=== PATIENT | male | born 1960 | race Caucasian/White ===

== ENCOUNTER 2018-12-29 16:20 | Emergency (ER) | payer OTHER ==
[~2018-12-29] VITALS: Ht 170.2 cm; Wt 79.4 kg
[2018-12-29 16:20] VITALS: BP_SYST 136
[2018-12-29] MEDS ORDERED: IPRATROPIUM/ALBUTEROL SULFATE 3 ML AMPUL.NEB (DUONEB) INH ONE (16:30)
[2018-12-29] MEDS ORDERED: MAGNESIUM SULFATE 50 ML IV ONE (16:30)
[2018-12-29] MEDS ORDERED: methylPREDNISolone SOD SUCC/PF 62.5 MG/ML VIAL IVP ONE (16:30)
[2018-12-29 16:54] LABS: BASOPHILS % (AUTO) 0.8 % (0.0-2.0); EOSINOPHILS % (AUTO) 0.6 % (0.0-4.0); HEMATOCRIT 44.8 % (36-54); HEMOGLOBIN 15.5 g/dL (14.0-18.0); LYMPHOCYTES # (AUTO) 1.4 K/uL (1.0-5.5); LYMPHOCYTES % (AUTO) 27.3 % (20.5-51.5); MEAN CORPUSCULAR HEMOGLOBIN 34 pg (27-31); MEAN CORPUSCULAR HGB CONC 35 % (32-36); MEAN CORPUSCULAR VOLUME 97 fL (79.0-98.0); MONOCYTES # (AUTO) 0.3 K/uL (0.0-1.0); MONOCYTES % (AUTO) 6.4 % (1.7-9.3); NEUTROPHILS # (AUTO) 3.3 K/uL (1.8-7.7); NEUTROPHILS % (AUTO) 64.9 % (40.0-70.0); PLATELET COUNT (AUTO) 178 K/uL (130-430); RED BLOOD CELL COUNT(AUTO) 4.62 MIL/uL (4.2-6.2); RED CELL DISTRIBUTION WIDTH 13.4 % (9.0-15.0); WHITE BLOOD COUNT (AUTO) 5.1 K/uL (4.8-10.8)
[2018-12-29 17:10] LABS: CALCIUM 8.4 mg/dL (8.4-11.0); CREATININE 1.01 mg/dL (0.55-1.30); POTASSIUM 3.6 mmol/L (3.5-5.1)
[2018-12-29 17:15] LABS: TOTAL BILIRUBIN 2.3 mg/dL (0.0-1.0)
[2018-12-29 18:00] VITALS: BP_SYST 136
== END 2018-12-29 18:05 | disposition home or self-care (01) ==
LOC: SED 16:20
DX: J45.909 Unspecified asthma, uncomplicated (principal); K21.9 Gastro-esophageal reflux disease without esophagitis
CPT/HCPCS: 36415; 71045; 80053; 85025; 87040; 94640; 96365; 96366; 96375; 99284; J2930; J3475; J7620

== ENCOUNTER 2019-07-19 16:52 | Emergency (ER) | payer OTHER ==
[~2019-07-19] VITALS: Ht 165.1 cm; Wt 83.5 kg
[2019-07-19 16:58] VITALS: BP_SYST 158
--- NOTE | 2019-07-19 16:58 | NUR ---
Patient to ER bed H1 to gown for evaluation. Side rails up. Report given to MAXIME Humphrey.
[2019-07-19] MEDS ORDERED: CLOPIDOGREL BISULFATE 75 MG TABLET PO ONE (17:00)
[2019-07-19] MEDS ORDERED: ASPIRIN 81 MG TAB.CHEW PO ONE (17:00)
[2019-07-19] MEDS ORDERED: NACL 0.9% 1,000 ML IV ONE (17:00)
--- NOTE | 2019-07-19 17:02 | NUR ---
ER at bedside examining patient.
[2019-07-19 17:12] LABS: BILIRUBIN,URINE NEGATIVE (NEGATIVE); BLOOD, URINE 1+ (NEGATIVE); CLARITY/URINE CLEAR (CLEAR); COLOR,URINE YELLOW (YELLOW); GLUCOSE,URINE NEGATIVE (NEGATIVE); KETONES,URINE NEGATIVE (NEGATIVE); LEUKOCYTE ESTERASE ,URINE NEGATIVE (NEGATIVE); NITRITE, URINE NEGATIVE (NEGATIVE); PH,URINE 6.5 (5.0-8.0); PROTEIN URINE NEGATIVE (NEGATIVE); UROBILINOGEN,URINE 0.2 (0.2-1.0)
[2019-07-19] MEDS ORDERED: DILTIAZEM HCL 25 MG/5 ML VIAL IVP ONE (17:15)
[2019-07-19 17:18] LABS: BACTERIA,URINE FEW /HPF (None Seen); MUCUS,URINE None Seen /LPF (None Seen); RBC,URINE 0-3 /HPF (0-3); WBC,URINE NONE SEEN /HPF (0-3)
--- NOTE | 2019-07-19 17:20 | NUR ---
Patient taken to radiology ambulatory and escorted by [place] technician anatomic pathology.
--- NOTE | 2019-07-19 17:25 | NUR ---
Pt presents to the ER for chest andmidsternal discomfort x today at 2pm. Pt states feeling discomfort after eating kiwi. Pt took asprin 81 mg at home. Pt states he also took his digitek, not sure of dose. He stopped taking his digitek medication 2 weeks prior due to feeling better and felt he had no need to take his medication. Addendum: 07/19/19 at 1806 by [email or web address] Pt stable, will continue to monitor.
--- NOTE | 2019-07-19 17:30 | NUR ---
Patient placed in ED 6 after going to radiology.
--- NOTE | 2019-07-19 17:30 | NUR ---
# 20 gauge angiocath placed to LAC. Use of asceptic technique. Opsite placed over site. Blood return noted. Flushed with 10 cc of normal saline. No evidence of infiltration noted. Patient tolerated well.
--- NOTE | 2019-07-19 17:44 | NUR ---
Cardizem not given as per Dr. Horton verbal order. BP 117/81 Pulse 77. Pt stable, Vitals WNL.
[2019-07-19 17:47] LABS: CALCIUM 9.2 mg/dL (8.4-11.0); CREATININE 0.89 mg/dL (0.55-1.30); POTASSIUM 4.4 mmol/L (3.5-5.1)
[2019-07-19 17:48] LABS: BASOPHILS % (AUTO) 0.7 % (0.0-2.0); HEMATOCRIT 49.2 % (36-54); HEMOGLOBIN 16.6 g/dL (14.0-18.0); LYMPHOCYTES # (AUTO) 1.8 K/uL (1.0-5.5); LYMPHOCYTES % (AUTO) 37.9 % (20.5-51.5); MEAN CORPUSCULAR HEMOGLOBIN 33 pg (27-31); MEAN CORPUSCULAR HGB CONC 34 % (32-36); MEAN CORPUSCULAR VOLUME 96 fL (79.0-98.0); MONOCYTES # (AUTO) 0.5 K/uL (0.0-1.0); MONOCYTES % (AUTO) 9.8 % (1.7-9.3); NEUTROPHILS # (AUTO) 2.4 K/uL (1.8-7.7); NEUTROPHILS % (AUTO) 50.6 % (40.0-70.0); RED CELL DISTRIBUTION WIDTH 13.8 % (9.0-15.0); WHITE BLOOD COUNT (AUTO) 4.7 K/uL (4.8-10.8)
[2019-07-19 17:51] LABS: PROTHROMBIN TIME 9.9 SECS (9.5-12.5)
[2019-07-19 17:53] LABS: ALBUMIN 3.9 g/dL (3.4-4.8)
[2019-07-19 17:54] LABS: PLATELET COUNT (AUTO) 300 K/uL (130-430)
--- NOTE | 2019-07-19 18:29 | NUR ---
Reassessment, pt describes 0/10 pain/discomfort. Vitals WNL, stable. Will continue to monitor.
--- NOTE | 2019-07-19 19:10 | NUR ---
Lab at bedside pulling second lactic.
[2019-07-19 19:18] VITALS: BP_SYST 114
--- NOTE | 2019-07-19 19:18 | NUR ---
Patient given written and verbal discharge instructions and verbalizes understanding. ER MD discussed with patient the results and treatment provided. Patient in stable condition. ID arm band removed. IV catheter removed intact and dressing applied, no active bleeding. Rx of Elixir, Sucralfate, Pepcid given. Patient educated on pain management and to follow up with PMD. Pain Scale 0/10. Opportunity for questions provided and answered. Medication side effect fact sheet provided.
== END 2019-07-19 19:18 | disposition home or self-care (01) ==
LOC: SED 16:52
DX: R07.89 Other chest pain (principal); K21.9 Gastro-esophageal reflux disease without esophagitis; K80.50 Calculus of bile duct without cholangitis or cholecystitis without obstruction; Z85.46 Personal history of malignant neoplasm of prostate; Z90.49 Acquired absence of other specified parts of digestive tract
CPT/HCPCS: 36415; 71045; 80053; 81000; 82550; 83605; 83690; 83880; 84484; 85025; 85610; 85730; 87040; 93005; 99285; J3490; J7030

== ENCOUNTER 2020-03-09 17:43 | Emergency (ER) | payer MEDICAID, SELFPAY ==
--- NOTE | 2020-03-09 17:55 | NUR ---
Pt to Chair 1. A/O and no sob noted. Able to ambulate without difficulty. Denies any dizziness at this time. Also, C/O Palpatations when he eats. Denies currently.
[2020-03-09 18:00] VITALS: BP_SYST 122
[2020-03-09 19:44] LABS: BASOPHILS # (AUTO) 0.2 K/uL (0.0-0.2); BASOPHILS % (AUTO) 2.7 % (0.0-2.0); EOSINOPHILS % (AUTO) 0.4 % (0.0-4.0); HEMATOCRIT 53.2 % (36-54); HEMOGLOBIN 18.2 g/dL (14.0-18.0); LYMPHOCYTES # (AUTO) 2.1 K/uL (1.0-5.5); LYMPHOCYTES % (AUTO) 28.9 % (20.5-51.5); MEAN CORPUSCULAR HEMOGLOBIN 33 pg (27-31); MEAN CORPUSCULAR HGB CONC 34 % (32-36); MEAN CORPUSCULAR VOLUME 96 fL (79.0-98.0); MONOCYTES # (AUTO) 0.7 K/uL (0.0-1.0); MONOCYTES % (AUTO) 9.6 % (1.7-9.3); NEUTROPHILS # (AUTO) 4.3 K/uL (1.8-7.7); NEUTROPHILS % (AUTO) 58.4 % (40.0-70.0); PLATELET COUNT (AUTO) 206 K/uL (130-430); RED BLOOD CELL COUNT(AUTO) 5.56 MIL/uL (4.2-6.2); RED CELL DISTRIBUTION WIDTH 13.4 % (9.0-15.0); WHITE BLOOD COUNT (AUTO) 7.4 K/uL (4.8-10.8)
[2020-03-09 20:16] LABS: CHLORIDE 105 mmol/L (98-107); POTASSIUM 4.4 mmol/L (3.5-5.1); SODIUM SERUM 141 mmol/L (136-145)
[2020-03-09 20:17] LABS: ANION GAP 7 (5-15); CALCIUM 9.2 mg/dL (8.4-11.0); CREATININE 1.03 mg/dL (0.55-1.30); GFR AFRICAN AMERICAN 95 mL/min (>90); GLUCOSE 100 mg/dL (70-99); UREA NITROGEN, BLOOD 11 mg/dL (8-21)
--- NOTE | 2020-03-09 20:30 | NUR ---
ED LE AT TENT EXAMINING PT
[2020-03-09 21:23] VITALS: BP_SYST 121
--- NOTE | 2020-03-09 21:23 | NUR ---
Patient given written and verbal discharge instructions and verbalizes understanding. ER MD HAMILTON discussed with patient the results and treatment provided. Patient in stable condition. ID arm band removed. Patient educated on pain management and to follow up with PMD. Pain Scale 0/10. Opportunity for questions provided and answered.
== END 2020-03-09 21:23 | disposition home or self-care (01) ==
LOC: SED 17:43
DX: I48.91 Unspecified atrial fibrillation (principal); R42 Dizziness and giddiness; R00.2 Palpitations; K21.9 Gastro-esophageal reflux disease without esophagitis; Z85.46 Personal history of malignant neoplasm of prostate; Z20.828 Contact with and (suspected) exposure to other viral communicable diseases
CPT/HCPCS: 36415; 80048; 80162; 84484; 85025; 87426; 99283; U0003

== ENCOUNTER 2020-03-10 10:23 | Emergency (ER) | payer MEDICAID, SELFPAY ==
[~2020-03-10] VITALS: Ht 160 cm; Wt 77.1 kg
[2020-03-10 10:27] VITALS: BP_SYST 129
--- NOTE | 2020-03-10 10:28 | NUR ---
Patient to ER triage room to gown for evaluation. Side rails up.
--- NOTE | 2020-03-10 10:33 | NUR ---
EKG given to Dr Rivera
--- NOTE | 2020-03-10 10:35 | NUR ---
Dr Rivera evaluating patient in the triage room
--- NOTE | 2020-03-10 10:37 | NUR ---
Pt brought by self, A&Ox4, pt presents to ER withchest discomfort states pain 03/14, also c/o dizziness and palpitations , skin pink and warm, cap refill <3, VSS, respirations even and unlabored, will cont to monitor.
--- NOTE | 2020-03-10 10:39 | NUR ---
Second EKG given to patient indicating STEEMI
--- NOTE | 2020-03-10 10:45 | NUR ---
Aspirin 162 mg PO administered at this time
[2020-03-10] MEDS ORDERED: ASPIRIN 81 MG TAB.CHEW ONE (10:48)
[2020-03-10 11:03] LABS: BASOPHILS % (AUTO) 0.5 % (0.0-2.0); EOSINOPHILS % (AUTO) 0.5 % (0.0-4.0); HEMATOCRIT 53.9 % (36-54); HEMOGLOBIN 18.5 g/dL (14.0-18.0); LYMPHOCYTES # (AUTO) 2.9 K/uL (1.0-5.5); LYMPHOCYTES % (AUTO) 36.6 % (20.5-51.5); MEAN CORPUSCULAR HEMOGLOBIN 33 pg (27-31); MEAN CORPUSCULAR HGB CONC 34 % (32-36); MEAN CORPUSCULAR VOLUME 96 fL (79.0-98.0); MONOCYTES # (AUTO) 0.8 K/uL (0.0-1.0); MONOCYTES % (AUTO) 9.6 % (1.7-9.3); NEUTROPHILS # (AUTO) 4.2 K/uL (1.8-7.7); NEUTROPHILS % (AUTO) 52.8 % (40.0-70.0); PLATELET COUNT (AUTO) 198 K/uL (130-430); RED BLOOD CELL COUNT(AUTO) 5.62 MIL/uL (4.2-6.2); RED CELL DISTRIBUTION WIDTH 13.7 % (9.0-15.0); WHITE BLOOD COUNT (AUTO) 7.9 K/uL (4.8-10.8)
[2020-03-10 11:10] VITALS: BP_SYST 129
--- NOTE | 2020-03-10 11:10 | NUR ---
Patient to be transferred to [facility] . Is being transferred due to higher level of care. Receiving facility has accepting physician and available space. ER physician has signed transfer form. Patient or responsible libertarian has agreed to transfer and signed form. Patient belongings inventoried and will be sent with patient. Copy of nursing notes, lab reports, EKG, Physicians Orders and X-rays to be sent with patient. Receiving physician is Dr Rosas . ambulance 911 service has been called for transfer.
[2020-03-10 11:35] LABS: ANION GAP 8 (5-15); CALCIUM 9.5 mg/dL (8.4-11.0); CHLORIDE 103 mmol/L (98-107); CREATININE 1.17 mg/dL (0.55-1.30); GFR AFRICAN AMERICAN 82 mL/min (>90); GLUCOSE 109 mg/dL (70-99); POTASSIUM 4.2 mmol/L (3.5-5.1); SODIUM SERUM 142 mmol/L (136-145); UREA NITROGEN, BLOOD 14 mg/dL (8-21)
== END 2020-03-10 11:10 | disposition short-term general hospital (02) ==
LOC: SED 10:23
DX: I21.3 ST elevation (STEMI) myocardial infarction of unspecified site (principal); R00.2 Palpitations; I48.91 Unspecified atrial fibrillation; K21.9 Gastro-esophageal reflux disease without esophagitis; Z85.46 Personal history of malignant neoplasm of prostate
CPT/HCPCS: 36415; 80048; 84484; 85025; 93005; 99291

== ENCOUNTER 2020-04-15 19:09 | Emergency (ER) | payer MEDICAID, SELFPAY ==
[~2020-04-15] VITALS: Ht 160 cm; Wt 76.2 kg
[2020-04-15 19:20] VITALS: BP_SYST 137
[2020-04-15] MEDS ORDERED: ALBUTEROL SULFATE 0.083% 2.5 MG/3 ML VIAL.NEB INH ONE ×2 (19:45→19:53)
[2020-04-15] MEDS ORDERED: predniSONE 20 MG TABLET PO ONE (19:45)
[2020-04-15] MEDS ORDERED: IPRATROPIUM BROM 0.5 MG/2.5 ML VIAL.NEB (ATROVENT) INH ONE (19:45)
[2020-04-15] MEDS ORDERED: PRED20TA PO (21:29)
[2020-04-15] MEDS ORDERED: AZIT250T PO (21:29)
[2020-04-15 21:41] VITALS: BP_SYST 117
== END 2020-04-15 21:41 | disposition home or self-care (01) ==
LOC: SED 19:09
DX: J45.909 Unspecified asthma, uncomplicated (principal); K21.9 Gastro-esophageal reflux disease without esophagitis; Z85.46 Personal history of malignant neoplasm of prostate
CPT/HCPCS: 94640; 99283; J7512; J7613

== ENCOUNTER → 2022-04-04 | Emergency (ER) | payer MEDICAID ==
[~2022-04-04] VITALS: Ht 167.6 cm; Wt 91.2 kg
[~2022-04-04] MED LIST: ALBMDI INH; IPRATROPIUM/ALBUTEROL SULFATE 3 ML AMPUL.NEB (DUONEB) INH ONE; PRED20TA PO; PRED50TA PO; ZIT250 PO; predniSONE 20 MG TABLET PO ONE
[2022-04-04 07:50] VITALS: BP_SYST 127
--- NOTE | 2022-04-04 07:59 | NUR ---
PT BIB SELF AWAKE AND ALERT, AOX4. PT C/O SOB, DIFFICULTY BREATHING, COUGH X5 DAYS. PT HAS HX OF ASTHMA. PT SEEKING MEDICATION REFILL.
--- NOTE | 2022-04-04 08:01 | NUR ---
MD DR FORDE AT BEDSIDE
[2022-04-04 08:45] VITALS: BP_SYST 143
--- NOTE | 2022-04-04 08:47 | NUR ---
Patient given written and verbal discharge instructions and verbalizes understanding. ER MD discussed with patient the results and treatment provided. Patient in stable condition. ID arm band removed. Rx of albuterol mdi, prednisone given. Patient educated on pain management and to follow up with PMD. Opportunity for questions provided and answered. Medication side effect fact sheet provided.
== END | disposition home or self-care (01) ==
LOC: SED 07:37
DX: J45.901 Unspecified asthma with (acute) exacerbation (principal); R05.9 Cough, unspecified; R09.81 Nasal congestion; Z79.899 Other long term (current) drug therapy
CPT/HCPCS: 99283; 94640; J7512

== ENCOUNTER 2022-06-29 12:50 | Emergency (ER) | payer MEDICAID ==
[~2022-06-29] VITALS: Ht 157.5 cm; Wt 84.4 kg
[~2022-06-29 12:50] MED LIST changes: -IPRATROPIUM/ALBUTEROL SULFATE 3 ML AMPUL.NEB (DUONEB) INH ONE; -predniSONE 20 MG TABLET PO ONE
--- NOTE | 2022-06-29 13:00 | NUR ---
Patient to ER bed 02 to gown for evaluation. Side rails up.
[2022-06-29 13:06] VITALS: BP_SYST 126
--- NOTE | 2022-06-29 13:14 | NUR ---
Pt brought by self, A&Ox4, pt presents to ER with sore throat x 2 days , denies SOB, denies cough, afebrile, skin pink and warm, cap refill <3, VSS,respirations even and unlabored, will cont to monitor
--- NOTE | 2022-06-29 13:16 | NUR ---
Dr Horton evaluating patient at bedside
--- NOTE | 2022-06-29 13:33 | NUR ---
BIB SELF FROM HOME WITH C/O SORE THROAT 1X WK. PT STATES HE WAS GIVEN AND FINISHED A COURSE OF AUGMENTIN 1X WK. HX - ASTHMA. PT IS AAX04, NAD, VSS, PT IS BREATHING EVEN AND UNLABORED ON RA. 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 SAFETY PRECUATIONS AND COMFORT MEASURES IN PLACE. PENDING MD MILLER AND ORDERS.
--- NOTE | 2022-06-29 15:16 | NUR ---
STREP SWABBED AND SENT TO LAB
[2022-06-29 15:26] LABS: BASOPHILS % (AUTO) 0.5 % (0.0-2.0); EOSINOPHILS # (AUTO) 0.1 K/uL (0.0-0.4); EOSINOPHILS % (AUTO) 0.9 % (0.0-4.0); HEMATOCRIT 50.5 % (36-54); HEMOGLOBIN 17.3 g/dL (14.0-18.0); LYMPHOCYTES # (AUTO) 1.8 K/uL (1.0-5.5); LYMPHOCYTES % (AUTO) 30.1 % (20.5-51.5); MEAN CORPUSCULAR HEMOGLOBIN 33 pg (27-31); MEAN CORPUSCULAR HGB CONC 34 % (32-36); MEAN CORPUSCULAR VOLUME 96 fL (79.0-98.0); MONOCYTES # (AUTO) 0.6 K/uL (0.0-1.0); MONOCYTES % (AUTO) 9.3 % (1.7-9.3); NEUTROPHILS # (AUTO) 3.5 K/uL (1.8-7.7); NEUTROPHILS % (AUTO) 59.2 % (40.0-70.0); PLATELET COUNT (AUTO) 197 K/uL (130-430); RED BLOOD CELL COUNT(AUTO) 5.29 MIL/uL (4.2-6.2); RED CELL DISTRIBUTION WIDTH 13.5 % (9.0-15.0); WHITE BLOOD COUNT (AUTO) 5.9 K/uL (4.8-10.8)
[2022-06-29 15:38] LABS: ANION GAP 4 (5-15); CALCIUM 8.9 mg/dL (8.4-11.0); CHLORIDE 102 mmol/L (98-107); GFR AFRICAN AMERICAN 97 mL/min (>90); GLUCOSE 96 mg/dL (70-99); UREA NITROGEN, BLOOD 11 mg/dL (8-21)
[2022-06-29 15:42] LABS: ALANINE AMINOTRANSFERASE 34 U/L (12-78); ALBUMIN 4.4 g/dL (3.4-4.8); ASPARTATE AMINOTRANSFERASE 21 U/L (10-37); TOTAL BILIRUBIN 2.2 mg/dL (0.0-1.0)
[2022-06-29 15:43] LABS: C-REACTIVE PROTEIN QUANT < 0.2 mg/dL (0-0.5)
[2022-06-29] MEDS ORDERED: NACL 0.9% 1,000 ML IV ONE (16:45)
--- NOTE | 2022-06-29 16:54 | NUR ---
FIRST CONTACT WITH PATIENT, IV INFILTRATED TO RT AC. NEW IV TO LEFT AC INSERTED, IV FLUIDS INFUSING WELL.
--- NOTE | 2022-06-29 18:22 | NUR ---
NO ACUTE CHANGES IN CONDITION, IV FLUIDS INFUSING WELL. VSS.
--- NOTE | 2022-06-29 18:30 | NUR ---
Note taniagermain in EDM - 06/29/22 at 1831 by [email or web address] Admit bed requested Patient will be admitted to care of . Admitted to [facility] unit. Diagnosis LEFT FEMUR SHAFT DISPLACEMENT Inpatient (Yes or No) Y Observation (Yes or No) N Orientation concerns or request close to nursing station (Yes or No) N Covid Status N/A On vent or bipap N Isolation requirements N Needs a sitter N From Home (Yes or if No enter name of facility) Y Requires Dialysis (Yes or No) N Med Rec Completed (Yes of No) Y
[2022-06-29] MEDS ORDERED: OMEP40CA20 PO (19:11)
[2022-06-29 19:27] VITALS: BP_SYST 126
--- NOTE | 2022-06-29 19:27 | NUR ---
Patient given written and verbal discharge instructions and verbalizes understanding. ER MD discussed with patient the results and treatment provided. Patient in stable condition. ID arm band removed. Rx of Omeprazole given. Patient educated on pain management and to follow up with PMD. Pain Scale 2/10. Opportunity for questions provided and answered. Medication side effect fact sheet provided.
== END 2022-06-29 19:27 | disposition home or self-care (01) ==
LOC: SED 12:50
DX: K21.00 Gastro-esophageal reflux disease with esophagitis, without bleeding (principal); J02.9 Acute pharyngitis, unspecified; R68.83 Chills (without fever); M79.10 Myalgia, unspecified site; J45.909 Unspecified asthma, uncomplicated; Z79.899 Other long term (current) drug therapy
CPT/HCPCS: 99285; 96360; 70491; 80053; 85025; 86140; 86403; 36415; 76376; 87081; 83605; Q9967; J7030